=== PATIENT | male | born 1965 | race Caucasian/White ===

== ENCOUNTER 2016-08-26 15:43 | Emergency (ER) | payer OTHER ==
[~2016-08-26] VITALS: Ht 167.6 cm; Wt 75.7 kg
[2016-08-26 17:39] VITALS: BP 136/91
== END 2016-08-26 17:39 | disposition home or self-care (01) ==
LOC: ED 15:43
DX: S91.111D Laceration without foreign body of right great toe without damage to nail, subsequent encounter (principal); X58.XXXD Exposure to other specified factors, subsequent encounter; Y93.89 Activity, other specified; Y92.89 Other specified places as the place of occurrence of the external cause; Y99.8 Other external cause status